=== PATIENT | female | born 1995 | race American Indian/Alaskan Native ===

== ENCOUNTER 2020-02-24 01:47 | Emergency (ER) | payer SELFPAY ==
[2020-02-24 02:41] LABS: Eosinophils # (Auto) 0.3 K/mm3 (0.0-0.4); Eosinophils % (Auto) 5.6 % (0.0-4.3); Monocytes # (Auto) 0.4 K/mm3 (0.0-0.8); Monocytes % (Auto) 8.7 % (0.0-7.3)
[2020-02-24 02:49] LABS: Basophils % (Auto) 0.9 % (0.0-1.8); Lymphocytes # (Auto) 1.8 K/mm3 (1.2-5.4); Lymphocytes % (Auto) 36.8 % (13.4-35.0); Mean Corpuscular HGB Conc 32 % (30-34); Mean Corpuscular Volume 77 fl (79-97); Platelet Count 358 K/mm3 (140-440); Red Cell Distribution Width 18.2 % (13.2-15.2)
[2020-02-24 02:54] LABS: Red Blood Count 2.52 M/mm3 (3.65-5.03)
[2020-02-24 02:56] LABS: Hematocrit 19.4 % (30.3-42.9); Hemoglobin 6.1 gm/dl (10.1-14.3)
[2020-02-24] MEDS ORDERED: SODIUM CHLORIDE 0.9% 500 ML 500 ML IV ONE (06:20)
[2020-02-24 07:37] LABS: INR 0.94 (0.87-1.13); Partial Thromboplastin Time 26.2 Sec. (24.2-36.6)
--- NOTE | 2020-02-24 07:44 | Emergency Department Report ---
<ELIAN BOYKIN - Last Filed: 02/24/20 19:13> ED Female HPI - General Chief complaint: Vaginal Bleeding Stated complaint: ABDOMINAL PAIN/HEAVY BLEEDING Time Seen by Provider: 02/24/20 06:20 - Related Data Previous Rx's Medication Instructions Recorded Last Taken Type Cyclobenzaprine HCl [Flexeril 5 MG 5 mg PO TID #20 tab 05/31/16 Unknown Rx TAB] Ibuprofen [Motrin 600 MG tab] 600 mg PO Q8H PRN #30 tablet 05/31/16 Unknown Rx Ferrous Sulfate [Ferrous Sulfate 324 mg PO DAILY #30 tablet. 02/24/20 Unknown Rx 324 MG] Allergies Allergy/AdvReac Type Severity Reaction Status Date / Time No Known Allergies Allergy Verified 05/31/16 18:22 ED Past Medical Hx - Medications Home Medications: Home Medications Medication Instructions Recorded Confirmed Last Taken Type Cyclobenzaprine HCl [Flexeril 5 MG 5 mg PO TID #20 tab 05/31/16 Unknown Rx TAB] Ibuprofen [Motrin 600 MG tab] 600 mg PO Q8H PRN #30 tablet 05/31/16 Unknown Rx Ferrous Sulfate [Ferrous Sulfate 324 mg PO DAILY #30 tablet. 02/24/20 Unknown Rx 324 MG] ED Medical Decision Making - Lab Data Result diagrams: 02/24/20 18:20 Lab Results 02/24/20 02/24/20 02/24/20 Range/Units 02:25 02:25 02:37 WBC 4.8 (4.5-11.0) K/mm3 RBC 2.52 L (3.65-5.03) M/mm3 Hgb 6.1 L (10.1-14.3) gm/dl Hct 19.4 L* (30.3-42.9) % MCV 77 L (79-97) fl MCH 24 L (28-32) pg MCHC 32 (30-34) % RDW 18.2 H (13.2-15.2) % Plt Count 358 (140-440) K/mm3 Lymph % (Auto) 36.8 H (13.4-35.0) % [place] % (Auto) 8.7 H (0.0-7.3) % Eos % (Auto) 5.6 H (0.0-4.3) % Baso % (Auto) 0.9 (0.0-1.8) % Lymph # 1.8 (1.2-5.4) K/mm3 Newberry # 0.4 (0.0-0.8) K/mm3 Eos # 0.3 (0.0-0.4) K/mm3 Baso # 0.0 (0.0-0.1) K/mm3 Seg Neutrophils % 48.0 (40.0-70.0) % Seg Neutrophils # 2.3 (1.8-7.7) K/mm3 PT (12.2-14.9) Sec. INR (0.87-1.13) APTT (24.2-36.6) Sec. HCG, Qual Negative (Negative) Urine Color (Yellow) Urine Turbidity (Clear) Urine pH (5.0-7.0) Ur Specific [place] (1.003-1.030) Urine Protein (Negative) mg/dL Urine Glucose (UA) (Negative) mg/dL Urine Ketones (Negative) mg/dL Urine Blood (Negative) Urine Nitrite (Negative) Urine Bilirubin (Negative) Urine Urobilinogen (<2.0) mg/dL Ur Leukocyte Esterase (Negative) Urine WBC (Auto) (0.0-6.0) /HPF Urine RBC (Auto) (0.0-6.0) /HPF U Epithel Cells (Auto) (0-13.0) /HPF Urine Mucus /HPF Blood Type O POSITIVE Antibody Screen Crossmatch 02/24/20 02/24/20 02/24/20 Range/Units 06:44 06:56 17:53 WBC (4.5-11.0) K/mm3 RBC (3.65-5.03) M/mm3 Hgb (10.1-14.3) gm/dl Hct (30.3-42.9) % MCV (79-97) fl MCH (28-32) pg MCHC (30-34) % RDW (13.2-15.2) % Plt Count (140-440) K/mm3 Lymph % (Auto) (13.4-35.0) % [place] % (Auto) (0.0-7.3) % Eos % (Auto) (0.0-4.3) % Baso % (Auto) (0.0-1.8) % Lymph # (1.2-5.4) K/mm3 [place] # (0.0-0.8) K/mm3 Eos # (0.0-0.4) K/mm3 Baso # (0.0-0.1) K/mm3 Seg Neutrophils % (40.0-70.0) % Seg Neutrophils # (1.8-7.7) K/mm3 PT 12.7 (12.2-14.9) Sec. INR 0.94 (0.87-1.13) APTT 26.2 (24.2-36.6) Sec. HCG, Qual (Negative) Urine Color Yellow (Yellow) Urine Turbidity Clear (Clear) Urine pH 6.0 (5.0-7.0) Ur Specific [place] 1.013 (1.003-1.030) Urine Protein <15 mg/dl (Negative) mg/dL Urine Glucose (UA) Neg (Negative) mg/dL Urine Ketones Neg (Negative) mg/dL Urine Blood Neg (Negative) Urine Nitrite Neg (Negative) Urine Bilirubin Neg (Negative) Urine Urobilinogen < 2.0 (<2.0) mg/dL Ur Leukocyte Esterase Neg (Negative) Urine WBC (Auto) 3.0 (0.0-6.0) /HPF Urine RBC (Auto) 2.0 (0.0-6.0) /HPF U Epithel Cells (Auto) 3.0 (0-13.0) /HPF Urine Mucus Few /HPF Blood Type O POSITIVE Antibody Screen Negative Crossmatch See Detail 02/24/20 Range/Units 18:20 WBC (4.5-11.0) K/mm3 RBC (3.65-5.03) M/mm3 Hgb 9.4 L D (10.1-14.3) gm/dl Hct 29.4 L D (30.3-42.9) % MCV (79-97) fl MCH (28-32) pg MCHC (30-34) % RDW (13.2-15.2) % Plt Count (140-440) K/mm3 Lymph % (Auto) (13.4-35.0) % [place] % (Auto) (0.0-7.3) % Eos % (Auto) (0.0-4.3) % Baso % (Auto) (0.0-1.8) % Lymph # (1.2-5.4) K/mm3 [place] # (0.0-0.8) K/mm3 Eos # (0.0-0.4) K/mm3 Baso # (0.0-0.1) K/mm3 Seg Neutrophils % (40.0-70.0) % Seg Neutrophils # (1.8-7.7) K/mm3 PT (12.2-14.9) Sec. INR (0.87-1.13) APTT (24.2-36.6) Sec. HCG, Qual (Negative) Urine Color (Yellow) Urine Turbidity (Clear) Urine pH (5.0-7.0) Ur Specific [place] (1.003-1.030) Urine Protein (Negative) mg/dL Urine Glucose (UA) (Negative) mg/dL Urine Ketones (Negative) mg/dL Urine Blood (Negative) Urine Nitrite (Negative) Urine Bilirubin (Negative) Urine Urobilinogen (<2.0) mg/dL Ur Leukocyte Esterase (Negative) Urine WBC (Auto) (0.0-6.0) /HPF Urine RBC (Auto) (0.0-6.0) /HPF U Epithel Cells (Auto) (0-13.0) /HPF Urine Mucus /HPF Blood Type Antibody Screen Crossmatch - Medical Decision Making Patient received 2 units of packed red blood cells. Her hemoglobin has improved dramatically. Patient is no longer having any symptoms at this time and she will be discharged home. ED Disposition Clinical Impression: Acute anemia, Abnormal vaginal bleeding, Ovarian cyst Disposition: DC- TO HOME OR SELFCARE Is pt being admited?: No Does the pt Need Aspirin: No Condition: Stable Instructions: Ovarian Cyst (ED), Iron Rich Diet (ED), Iron Deficiency Anemia (ED) Prescriptions: Ferrous Sulfate [Ferrous Sulfate 324 MG] 324 mg PO DAILY #30 tablet. Referrals: PRIMARY CARE, [Primary Care Provider] - 3-5 Days Time of Disposition: 19:14 <VIRY REBOLLEDO - Last Filed: 02/25/20 14:50> ED Female HPI - General Source: patient Mode of arrival: Ambulatory Limitations: No Limitations - History of Present Illness Initial comments: Patient is a 24 years old female 2 para 0. Patient presented to the ER complaining of syncopal episode and dizziness and heavy vaginal bleeding for the last 5 days. Patient stated that she always have a heavy bleeding during her cycle. Patient also complaining of crampy lower abdominal pain. Patient denies any chest pain, nausea or vomiting. MD Complaint: vaginal bleeding -: days(s) (5) Severity: moderate Quality: cramping Consistency: constant Associated Symptoms: vaginal bleeding - Related Data Sexually active: Yes ED Review of Systems ROS: Stated complaint: ABDOMINAL PAIN/HEAVY BLEEDING Other details as noted in HPI ED Past Medical Hx - Past Medical History Previous Medical History?: No - Surgical History Past Surgical History?: Yes Additional Surgical History: - Social History Smoking Status: Never Smoker Substance Use Type: None ED Physical Exam - General Limitations: No Limitations General appearance: alert, in no apparent distress - Eye Eye exam: Present: other (Pale conjunctive) - ENT ENT exam: Present: normal exam, normal orophraynx, mucous membranes moist - Neck Neck exam: Present: normal inspection, full ROM. Absent: tenderness, meningismus - Respiratory Respiratory exam: Present: normal lung sounds bilaterally - Cardiovascular Cardiovascular Exam: Present: regular rate, normal rhythm, normal heart sounds - GI/Abdominal GI/Abdominal exam: Present: soft, normal bowel sounds. Absent: distended, tenderness, guarding, rebound, rigid, organomegaly, mass, bruit, pulsatile mass - Extremities Exam Extremities exam: Present: normal inspection, full ROM, normal capillary refill. Absent: pedal edema, calf tenderness - Back Exam Back exam: Present: normal inspection, full ROM. Absent: CVA tenderness (R), CVA tenderness (L), muscle spasm, paraspinal tenderness, vertebral tenderness, rash noted - Neurological Exam Neurological exam: Present: alert, oriented X3, CN II-XII intact, normal gait, reflexes normal. Absent: motor sensory deficit - Psychiatric Psychiatric exam: Present: normal mood - Skin Skin exam: Present: warm, intact, normal color ED Course Vital Signs 02/24/20 02/24/20 02/24/20 02:09 05:06 05:07 Temperature 98.3 F 98.4 F Pulse Rate 98 H 103 H Respiratory 18 20 20 Rate Blood Pressure 124/71 Blood Pressure 116/64 [Right] O2 Sat by Pulse 99 99 99 Oximetry 02/24/20 02/24/20 02/24/20 05:36 05:40 06:56 Temperature Pulse Rate Respiratory Rate Blood Pressure 115/58 115/58 Blood Pressure [Right] O2 Sat by Pulse 85 86 83 L Oximetry 02/24/20 02/24/20 02/24/20 09:30 09:41 09:51 Temperature Pulse Rate Respiratory Rate Blood Pressure 115/58 95/49 95/49 Blood Pressure [Right] O2 Sat by Pulse 87 100 100 Oximetry 02/24/20 02/24/20 02/24/20 10:00 10:11 10:21 Temperature Pulse Rate Respiratory Rate Blood Pressure 95/49 89/47 95/49 Blood Pressure [Right] O2 Sat by Pulse 100 99 100 Oximetry 02/24/20 02/24/20 02/24/20 10:31 10:41 10:51 Temperature Pulse Rate Respiratory Rate Blood Pressure 95/49 103/60 103/60 Blood Pressure [Right] O2 Sat by Pulse 99 100 99 Oximetry 02/24/20 02/24/20 02/24/20 11:01 11:11 11:21 Temperature Pulse Rate Respiratory Rate Blood Pressure 103/60 104/60 103/60 Blood Pressure [Right] O2 Sat by Pulse 99 99 99 Oximetry 02/24/20 02/24/20 02/24/20 11:31 11:41 11:51 Temperature Pulse Rate Respiratory Rate Blood Pressure 103/60 100/54 100/54 Blood Pressure [Right] O2 Sat by Pulse 98 99 99 Oximetry 02/24/20 02/24/20 02/24/20 12:01 12:11 12:15 Temperature 98.3 F Pulse Rate 85 85 84 Respiratory 24 18 23 Rate Blood Pressure 102/60 102/60 102/60 Blood Pressure [Right] O2 Sat by Pulse 100 100 100 Oximetry 02/24/20 02/24/20 02/24/20 12:21 12:24 12:30 Temperature 98.3 F 98.4 F Pulse Rate 76 Respiratory 20 Rate Blood Pressure 108/60 Blood Pressure [Right] O2 Sat by Pulse 100 Oximetry 02/24/20 02/24/20 02/24/20 12:31 12:41 12:51 Temperature 98.5 F Pulse Rate 88 75 74 Respiratory 15 20 22 Rate Blood Pressure 108/60 89/49 94/51 Blood Pressure [Right] O2 Sat by Pulse 100 99 100 Oximetry 02/24/20 02/24/20 02/24/20 13:01 13:21 13:31 Temperature Pulse Rate 75 85 78 Respiratory 24 19 20 Rate Blood Pressure 91/49 90/45 88/47 Blood Pressure [Right] O2 Sat by Pulse 100 100 100 Oximetry 02/24/20 02/24/20 02/24/20 13:41 13:51 14:01 Temperature Pulse Rate 78 71 92 H Respiratory 21 18 22 Rate Blood Pressure 88/47 92/45 86/51 Blood Pressure [Right] O2 Sat by Pulse 99 99 100 Oximetry 02/24/20 02/24/20 02/24/20 14:10 14:11 14:21 Temperature 98.8 F Pulse Rate 81 77 89 Respiratory 24 20 27 H Rate Blood Pressure 92/50 86/51 93/55 Blood Pressure [Right] O2 Sat by Pulse 100 100 100 Oximetry 02/24/20 02/24/20 02/24/20 14:31 14:41 14:51 Temperature 98.8 F Pulse Rate 87 85 85 Respiratory 23 16 25 H Rate Blood Pressure 94/52 94/52 92/50 Blood Pressure [Right] O2 Sat by Pulse 100 100 100 Oximetry 02/24/20 02/24/20 02/24/20 15:00 15:06 15:11 Temperature 98.5 F Pulse Rate 84 80 91 H Respiratory 25 H 17 22 Rate Blood Pressure 103/60 112/64 94/50 Blood Pressure [Right] O2 Sat by Pulse 100 99 100 Oximetry 02/24/20 02/24/20 02/24/20 15:13 15:21 15:25 Temperature 98.8 F 98.9 F Pulse Rate 85 87 82 Respiratory 21 20 22 Rate Blood Pressure 94/50 102/51 103/54 Blood Pressure [Right] O2 Sat by Pulse 100 100 100 Oximetry 02/24/20 02/24/20 02/24/20 15:31 15:41 15:51 Temperature Pulse Rate 82 64 66 Respiratory 19 20 20 Rate Blood Pressure 96/57 96/57 90/52 Blood Pressure [Right] O2 Sat by Pulse 100 100 100 Oximetry 02/24/20 02/24/20 02/24/20 16:00 16:11 16:21 Temperature Pulse Rate 71 84 79 Respiratory 13 17 28 H Rate Blood Pressure 90/52 105/57 98/64 Blood Pressure [Right] O2 Sat by Pulse 100 100 100 Oximetry 02/24/20 02/24/20 02/24/20 16:31 16:41 16:51 Temperature Pulse Rate 101 H 83 88 Respiratory 22 23 24 Rate Blood Pressure 98/64 109/61 104/67 Blood Pressure [Right] O2 Sat by Pulse 100 100 100 Oximetry 02/24/20 02/24/20 02/24/20 17:01 17:21 17:36 Temperature 98.6 F Pulse Rate 81 79 80 Respiratory 23 15 19 Rate Blood Pressure 112/76 103/54 109/65 Blood Pressure [Right] O2 Sat by Pulse 100 100 Oximetry ED Medical Decision Making - Lab Data Result diagrams: 02/24/20 18:20 - Radiology Data Radiology results: report reviewed - Medical Decision Making Patient is a 24 years old female 2 para 0. Patient presented to the ER complaining of syncopal episode and dizziness and heavy vaginal bleeding for the last 5 days. Patient stated that she always have a heavy bleeding during her cycle. Patient also complaining of crampy lower abdominal pain. Patient denies any chest pain, nausea or vomiting. Patient found to have a hemoglobin of 6.1. An MCV of 77 indicating chronic iron deficiency anemia. Patient received 2 units of PRBC in the emergency room. Pelvic ultrasound showed a 6 cm complex ovarian cyst however there is no evidence of torsion. Patient given Provera 10 mg and advised to follow-up with her account officer in the next 2 to 3 days and to return to the ER if she develop any significant symptoms. Critical Care Time: Yes Critical care time in (mins) excluding proc time.: 30 Critical care attestation.: If time is entered above; I have spent that time in minutes in the direct care of this critically ill patient, excluding procedure time. ED Disposition Is pt being admited?: No
--- NOTE | 2020-02-24 09:09 | Ultrasound Report ---
ULTRASOUND PELVIS INDICATION: abdominal cramp,vaginal bleeding and HB of 6.1. TECHNIQUE: Transabdominal. Duplex Color Doppler used: Yes. COMPARISON: None available FINDINGS: Uterus: Present. Size: 8.0 x 3.0 x 5.0 cm. Endometrial complex: Normal measuring 5 mm. Mass lesions: None. Additional findings: None. Right Ovary --not visualized secondary bowel gas Left Ovary-- enlarged Blood flow: Normal. Cyst or mass: Complex cystic mass with internal echoes measuring 6.0 x 5.2 x 7.0 cm. No increased col or Doppler flow to suggest solid mass Urinary Bladder: Normal. Free Fluid: None. Additional Findings: None. IMPRESSION: 1. Complex 6 cm left ovarian cystic mass. No free fluid or torsion 2. Right ovary not visualized Signer Name: Eduardo Combs MD Signed: 02/24/2020 9:04 AM Workstation Name: [id number]
[2020-02-24] MEDS ORDERED: SODIUM CHLORIDE 0.9% 500 ML 500 ML ONE ×2 (11:50→14:15)
[2020-02-24 17:46] VITALS: BP 109/65
[2020-02-24 18:37] LABS: Hematocrit 29.4 % (30.3-42.9); Hemoglobin 9.4 gm/dl (10.1-14.3)
[2020-02-24 18:40] LABS: Bilirubin,Urine NEG (Negative); Blood,Urine NEG (Negative); Color,Urine Yellow (Yellow); Mucus,Urine FEW /HPF; Protein,Urine <15 mg/dL mg/dL (Negative); Urobilinogen,Urine < 2.0 mg/dL (<2.0)
== END 2020-02-24 19:04 | disposition home or self-care (01) ==
LOC: ED 01:47
DX: D64.9 Anemia, unspecified (principal); N93.9 Abnormal uterine and vaginal bleeding, unspecified; N83.299 Other ovarian cyst, unspecified side
CPT/HCPCS: 36415; 36430; 76856; 81001; 84703; 85014; 85018; 85025; 85610; 85730; 86850; 86900; 86901; 86920; 99284; J7040; P9016